=== PATIENT | female | born 1955 | race Caucasian/White ===

== ENCOUNTER 2018-11-04 16:34 | Inpatient (IN) ==
[2018-11-04] MEDS ORDERED: XANAX PO PRN (16:41)
[2018-11-04] MEDS ORDERED: TORADOL 15 MG VIAL IVP PRN (16:41)
--- NOTE | 2018-11-04 17:05 | DR.H&P ---
H&P - History & Physical for Day of: H&P Date: 11/04/18 - Chief Complaint Chief Complaint: RIGHT SIDE CHEST PAIN, CCC, SOB, FEVER - History of Present Illness History of Present Illness: 63 WF DIRECT ADMIT FROM DR C[place] OFFICE WITH CO CCC, WHEEZING, FEVER. PT STATES SHE HAD BEEN SICK FOR OVER A WEEK, USING BREATHING TREATMENTS AND TOOK ZITHROMAX. PT CO RIGHT SIDE CHEST PAIN AND ELEVATED BLOOD PRESSURE AND FEVER THIS AM. TEMP IN OFFICE 100. PT HAS PMH OF HTN, WHITLEY, COPD. PT ADMITTED FOR TREATMENT OF ACUTE ILLNESS, PNEUMONIA PROTCOL. - Past Medical History Past Medical History: COPD, GERD, Hypertension - Past Surgical History Surgical History: , Hysterectomy, Ortho Surgery - Family History Family Medical History: Diabetes Mellitus, Cancer, [place], Coronary Artery Disease, Sudden Cardiac , Hypertension - Social History Does patient currently use any type of tobacco product: Yes Have you used tobacco products in the last 12 months: Yes Type of Tobacco Use: Cigarettes Does any household member use tobacco: No Alcohol Use: None Drug Use: None Risks, benefits, and alternatives of opioids discussed: No - Medications Home Medications: MS Ceftriaxone [From Rocephin] Allergy (Severe, Verified 11/02/14 18:10) - Review of Systems Constitutional: Fever, Weakness, Malaise Eyes: No Symptoms Reported ENT: Nose Congestion, Throat Pain Respiratory: Cough, Shortness of Breath, SOB with Excertion, Pleuritic Pain, Wheezing Cardiovascular: Chest Pain (RIGHT ), Edema (RLE ) Gastrointestinal: No Symptoms Reported Genitourinary: No Symptoms Reported Musculoskeletal: Back Pain Skin: No Symptoms Reported Neurological: No Symptoms Reported - Physical Exam Vital Signs: Blood Pressure [Left Arm] 131/62 Blood Pressure [Right Arm] 143/73 Blood Pressure 143/73 Oriented: Normal Eyes: Normal Ear: Normal Nose: Normal Throat: Dry Respiratory: Wheezes Throughout, RLL Diminished, LLL Diminished Cardiovascular: Tachycardia, Edema (RLE +1 EDEMA) : Normal Auscultation: Bowel Sounds: Normal Palpation: Normal Tenderness: Normal Skin: Normal Musculoskeletal: Back:Lumbar Psychiatric: Anxiety Affect: Anxious Speech Pattern: Clear, Appropriate - Assessment/Plan (1) Bronchopneumonia Status: Acute Plan: ADMIT, PNEUMONIA PROTOCOL. BLOOD AND SPUTUM CULTURES. GENTLE IV HYDRATION, IV ATBX. IV SOLU MEDROL, ABG ON ADMISSION. BP CONTROL, VERIFY HOME MEDICATION. SUPPLEMENTAL O2 (2) SOB (shortness of breath) Status: Acute (3) Fever Status: Acute (4) Degenerative arthritis of lumbar spine Status: Acute (5) HTN (hypertension) Status: Chronic - Allergies Allergies/Adverse Reactions: Allergies Allergy/AdvReac Type Severity Reaction Status Date / Time MS Ceftriaxone Allergy Severe Verified 11/02/14 18:10 [From [place]]
[2018-11-04] MEDS: PULMICORT NEB TX 0.5 MG NEB SCH ×2 (17:26→20:11)
[2018-11-04] MEDS ORDERED: SALINE 3% 15 ML NEB TX NEB ONE (18:00)
[2018-11-04 18:27] LABS: BASOPHILS # (AUTO) 0.1 X10^3/uL (0.0-0.1); BASOPHILS % (AUTO) 0.6 % (0.2-1.0); EOSINOPHILS # (AUTO) 0.1 x10^3/uL (0.0-0.2); EOSINOPHILS % (AUTO) 0.4 % (0.9-2.9); HEMOGLOBIN 12.6 g/dL (12.0-16.0); LYMPHOCYTES # (AUTO) 1.7 X10^3/uL (1.3-2.9); MEAN CORPUSCULAR HEMOGLOBIN 30.3 pg (27.0-34.0); MEAN CORPUSCULAR VOLUME 89.1 fL (80.0-100.0); MEAN PLATELET VOLUME 9.4 fL (7.4-11.0); MONOCYTES # (AUTO) 0.9 x10^3/uL (0.3-0.8); MONOCYTES % (AUTO) 7.2 % (0.0-13.0); NEUTROPHILS # (AUTO) 10.2 x10^3/uL (2.2-4.8); NEUTROPHILS % (AUTO) 78.8 % (42.0-75.0); PLATELET COUNT 209 X10^3/uL (150.0-450.0); RED BLOOD COUNT 4.15 X10^6/uL (3.5-5.4); RED CELL DISTRIBUTION WIDTH 14.1 % (11.6-16.5); WHITE BLOOD COUNT 12.9 X10^3/uL (3.6-10.0)
[2018-11-04 18:37] LABS: ALANINE AMINOTRANSFERASE 20 Units/L (12-78); ALBUMIN 3.5 g/dL (3.4-5.0); ALKALINE PHOSPHATASE 72 Units/L (46-116); ASPARTATE AMINO TRANSFERASE 20 Units/L (15-37); BLOOD UREA NITROGEN 22 mg/dL (7-18); CALCIUM 9.3 mg/dL (8.5-10.1); CARBON DIOXIDE 27.8 mmol/L (21-32); CHLORIDE 99 mmol/L (98-107); CREATININE 1.63 mg/dL (0.55-1.02); SODIUM 138 mmol/L (136-145); TOTAL PROTEIN 7.7 g/dL (6.4-8.2); eGFR NON BLACK RACES 34 (>60)
[2018-11-04] MEDS ORDERED: NS 1/2 1000 ML IV 1,000 ML ONE (18:57)
[2018-11-04] MEDS: CHLORTHALIDONE PO SCH (19:13)
[2018-11-04] MEDS: COZAAR PO SCH (19:13)
[2018-11-04] MEDS: NS 1/2 1000 ML IV 1,000 ML IV SCH (19:14)
[2018-11-04] MEDS: PROTONIX INJ 40 MG VIAL IVP SCH (19:14)
[2018-11-04] MEDS: ROBITUSSIN DM PO SCH ×2 (19:14→21:55)
[2018-11-04] MEDS: ZEBETA TAB 5 MG PO SCH (19:15)
[2018-11-04 19:18] VITALS: BMI 28.2
[2018-11-04] MEDS ORDERED: PREVNAR 13 IM ONE (20:00)
[2018-11-04] MEDS: DUONEB 0.5 MG/3 MG NEB SCH (20:11)
[2018-11-04] MEDS: LEVAQUIN PREMIX IV 750 MG 750 MG/150 ML BAG IV SCH (20:19)
[2018-11-04] MEDS: BROVANA IN SCH (20:31)
[2018-11-04] MEDS: SOLU-Medrol 40 MG VIAL IVP SCH (21:00)
[2018-11-04] MEDS: TUSSIONEX PENNKINETIC SUSP PO PRN (21:54)
--- NOTE | 2018-11-04 22:06 | RAD ---
History: Pneumonia Exam: Chest x-ray Comparison: 07/07/2014 Technique: A portable AP chest was obtained. Findings: The heart is borderline enlarged but unchanged. The pulmonary vessels are engorged centrally and more prominent with some hazy perihilar and bibasilar interstitial prominence . There is subsegmental linear opacity along the left upper lobe with mild linear densities scattered along both lung bases. No effusion is seen. IMPRESSION: Mild cardiomegaly and mild pulmonary interstitial edema which is more apparent . Subsegmental infiltrate or atelectasis left upper lobe with mild discoid atelectasis or scarring along the lung bases which is more prominent. Reported By:
[2018-11-05] MEDS: DUONEB 0.5 MG/3 MG NEB SCH ×6 (00:57→20:34)
[2018-11-05] MEDS: SOLU-Medrol 40 MG VIAL IVP SCH ×2 (05:14→14:34)
[2018-11-05 06:06] LABS: BASOPHILS % (AUTO) 0.2 % (0.2-1.0); HEMATOCRIT 35.1 % (36.0-47.0); LYMPHOCYTES # (AUTO) 0.6 X10^3/uL (1.3-2.9); LYMPHOCYTES % (AUTO) 6.7 % (21.0-51.0); MEAN CORPUSCULAR HEMOGLOBIN 30.6 pg (27.0-34.0); MEAN CORPUSCULAR HGB CONC 34.1 g/dL (33.0-35.0); MEAN CORPUSCULAR VOLUME 89.9 fL (80.0-100.0); MEAN PLATELET VOLUME 9.3 fL (7.4-11.0); MONOCYTES # (AUTO) 0.2 x10^3/uL (0.3-0.8); NEUTROPHILS # (AUTO) 8.3 x10^3/uL (2.2-4.8); NEUTROPHILS % (AUTO) 91.1 % (42.0-75.0); PLATELET COUNT 185 X10^3/uL (150.0-450.0); RED BLOOD COUNT 3.91 X10^6/uL (3.5-5.4); RED CELL DISTRIBUTION WIDTH 14.1 % (11.6-16.5); WHITE BLOOD COUNT 9.1 X10^3/uL (3.6-10.0)
[2018-11-05 06:33] LABS: ALBUMIN 3.1 g/dL (3.4-5.0); CARBON DIOXIDE 26.6 mmol/L (21-32); COR CA(FOR HYPOALB) 9.7 mg/dL (8.5-10.1); CREATININE 1.59 mg/dL (0.55-1.02); PLATELET MORPHOLOGY COMMENT NORMAL (NORMAL); TOTAL PROTEIN 7.3 g/dL (6.4-8.2)
[2018-11-05] MEDS: PULMICORT NEB TX 0.5 MG NEB SCH ×2 (08:39→20:34)
[2018-11-05] MEDS: BROVANA IN SCH ×2 (08:56→20:56)
[2018-11-05] MEDS: ROBITUSSIN DM PO SCH ×5 (09:14→21:00)
[2018-11-05] MEDS: COZAAR PO SCH (09:14)
[2018-11-05] MEDS: PROTONIX INJ 40 MG VIAL IVP SCH (09:14)
[2018-11-05] MEDS: ZEBETA TAB 5 MG PO SCH (09:16)
[2018-11-05] MEDS: CHLORTHALIDONE PO SCH (09:16)
[2018-11-05] MEDS: NS 1/2 1000 ML IV 1,000 ML IV SCH ×3 (09:23→21:00)
[2018-11-05] MEDS: EFFEXOR TAB 75 MG (BID DOSING) PO SCH (11:24)
[2018-11-05] MEDS: MICRO K EXTEN CAP 10 MEQ PO SCH (11:24)
[2018-11-05] MEDS: CARAFATE PO SCH ×5 (11:24→20:59)
[2018-11-05] MEDS: LASIX IVP ONE ×2 (11:24→13:38)
[2018-11-05] MEDS ORDERED: NS 1/2 1000 ML IV 1,000 ML ONE (15:42)
[2018-11-05] MEDS: NEURONTIN CAP 300 MG PO SCH (20:59)
[2018-11-05] MEDS: SINGULAIR TAB 10 MG PO SCH (21:00)
[2018-11-06] MEDS: DUONEB 0.5 MG/3 MG NEB SCH ×6 (01:05→21:00)
[2018-11-06] MEDS ORDERED: NS 1/2 1000 ML IV 1,000 ML ONE (04:32)
[2018-11-06 06:10] LABS: BASOPHILS # (AUTO) 0.1 X10^3/uL (0.0-0.1); BASOPHILS % (AUTO) 0.4 % (0.2-1.0); HEMATOCRIT 37.4 % (36.0-47.0); HEMOGLOBIN 12.3 g/dL (12.0-16.0); LYMPHOCYTES # (AUTO) 1.2 X10^3/uL (1.3-2.9); LYMPHOCYTES % (AUTO) 7.4 % (21.0-51.0); MEAN CORPUSCULAR HEMOGLOBIN 29.8 pg (27.0-34.0); MEAN CORPUSCULAR VOLUME 90.5 fL (80.0-100.0); MEAN PLATELET VOLUME 9.3 fL (7.4-11.0); MONOCYTES # (AUTO) 1.3 x10^3/uL (0.3-0.8); MONOCYTES % (AUTO) 8.3 % (0.0-13.0); NEUTROPHILS % (AUTO) 83.9 % (42.0-75.0); PLATELET COUNT 200 X10^3/uL (150.0-450.0); RED BLOOD COUNT 4.13 X10^6/uL (3.5-5.4); RED CELL DISTRIBUTION WIDTH 13.9 % (11.6-16.5); WHITE BLOOD COUNT 15.5 X10^3/uL (3.6-10.0)
--- NOTE | 2018-11-06 06:20 | RAD ---
Chest, two views Indication: Pneumonia Comparison: 11/04/2018 Findings: There is stable enlargement of the cardiac silhouette. Interstitial edema appears improved since prior exam. There is stable atelectasis versus scarring within the left upper lobe. Patchy right upper lobe opacities appear slightly more conspicuous on today's exam. No pleural effusion is identified. No pneumothorax. Impression: Stable cardiomegaly with improving interstitial edema. Patchy right upper lobe opacities, suspicious for pneumonia. Stable atelectasis versus scarring of the left upper lobe. Reported By:
[2018-11-06 06:37] LABS: CALCIUM 9.2 mg/dL (8.5-10.1); CARBON DIOXIDE 29.5 mmol/L (21-32); CREATININE 1.57 mg/dL (0.55-1.02); TOTAL PROTEIN 7.3 g/dL (6.4-8.2)
[2018-11-06] MEDS: PULMICORT NEB TX 0.5 MG NEB SCH ×2 (08:32→21:00)
[2018-11-06] MEDS: BROVANA IN SCH ×2 (08:46→21:15)
[2018-11-06] MEDS ORDERED: CRESTOR TAB 10 MG PO SCH ×2 (09:00→21:00)
[2018-11-06] MEDS: CARAFATE PO SCH ×4 (09:31→20:54)
[2018-11-06] MEDS: ZEBETA TAB 5 MG PO SCH (09:32)
[2018-11-06] MEDS: MICRO K EXTEN CAP 10 MEQ PO SCH (09:33)
[2018-11-06] MEDS: EFFEXOR TAB 75 MG (BID DOSING) PO SCH (09:33)
[2018-11-06] MEDS: COZAAR PO SCH (09:34)
[2018-11-06] MEDS: ROBITUSSIN DM PO SCH ×4 (09:35→20:53)
[2018-11-06] MEDS: PROTONIX TAB 40 MG PO SCH (09:35)
[2018-11-06] MEDS: CHLORTHALIDONE PO SCH (09:35)
[2018-11-06] MEDS: NS 1/2 1000 ML IV 1,000 ML IV SCH ×2 (09:40→11:32)
--- NOTE | 2018-11-06 18:03 | PCM.PROG ---
Progress Note - Progress Note for Day of Date of Exam: 11/06/18 - Subjective Subjective: The patient is a 63-year-old white female who was a direct admit from Dr. Hyde office yesterday with reports of cold, cough, and congestion, wheezing, along with fever. The patient was admitted for the pneumonia protocol. On admission, her chest x-ray did show a sub-segmental infiltrate along with mild cardiomegaly and pulmonary interstitial edema which was more apparent on the patients admitting chest x-ray. We did obtain a sputum culture and blood cultures on admission which are pending. Pt continues with complain of cough with diffuse expiratory wheezing, decreased lower extremity edema. Creat continues to be elevated above her baseline. We encouraged oral hydration and pulmonary toileting. We will obtain Ct chest without due to renal function to evaluate pneumonia and repeat lasix and solu medrol in the am x 1 dose. - Past Medical Family Social History Past Med/Fam/Surg Hx: No changes since H&P Allergies: Allergies ceftriaxone [From Rocephin] Allergy (Verified 11/04/18 19:28) - Review of Systems ROS: No change since H&P - Vital Signs and I&O's Vital Signs: Temperature 98.0 F Pulse Rate [Left Brachial] 80 Pulse Rate 83 Respiratory Rate 18 Blood Pressure [Left Arm] 146/70 Blood Pressure [Right Arm] 143/73 Blood Pressure 143/73 O2 Sat by Pulse Oximetry 98 Intake and Output: Intake & Output 11/04/18 11/05/18 11/06/18 11/07/18 11:59 11:59 11:59 11:59 Intake Total 1230 / 1230 2555 / 2555 1942 Balance 1230 / 1230 2555 / 2555 1942 - Physical Exam Oriented: Normal Eyes: Normal Ear: Normal Nose: Normal Throat: Dry Respiratory: Wheezes, Rhonchi Cardiovascular: Tachycardia, Edema (RLE +1 EDEMA) : Normal Auscultation: Bowel Sounds: Normal Tenderness: Normal Skin: Normal Musculoskeletal: Back:Lumbar Psychiatric: Anxiety Affect: Anxious Speech Pattern: Clear, Appropriate - Laboratory and Diagnostics Result Diagrams: 11/06/18 05:17 11/06/18 05:17 Labs: 11/04/18 17:49 Blood Blood Culture - Preliminary 11/04/18 17:43 Blood Blood Culture - Preliminary 11/04/18 18:10 Sputum - Expectorated Sputum Sputum Culture - Preliminary 11/04/18 18:10 Sputum - Expectorated Sputum - Final Laboratory WBC 15.5 X10^3/uL (3.6-10.0) H 11/06/18 05:17 RBC 4.13 X10^6/uL (3.5-5.4) 11/06/18 05:17 Hgb 12.3 g/dL (12.0-16.0) 11/06/18 05:17 Hct 37.4 % (36.0-47.0) 11/06/18 05:17 MCV 90.5 fL (80.0-100.0) 11/06/18 05:17 MCH 29.8 pg (27.0-34.0) 11/06/18 05:17 MCHC 33.0 g/dL (33.0-35.0) 11/06/18 05:17 RDW 13.9 % (11.6-16.5) 11/06/18 05:17 Plt Count 200 X10^3/uL (150.0-450.0) 11/06/18 05:17 Plt Count Comment Adequate (ADEQUATE) 11/05/18 05:31 MPV 9.3 fL (7.4-11.0) 11/06/18 05:17 Neut % (Auto) 83.9 % (42.0-75.0) H 11/06/18 05:17 Lymph % (Auto) 7.4 % (21.0-51.0) L 11/06/18 05:17 [place] % (Auto) 8.3 % (0.0-13.0) 11/06/18 05:17 Eos % (Auto) 0.0 % (0.9-2.9) L 11/06/18 05:17 Baso % (Auto) 0.4 % (0.2-1.0) 11/06/18 05:17 Neut # (Auto) 13.0 x10^3/uL (2.2-4.8) H 11/06/18 05:17 Lymph # (Auto) 1.2 X10^3/uL (1.3-2.9) L 11/06/18 05:17 [place] # (Auto) 1.3 x10^3/uL (0.3-0.8) H 11/06/18 05:17 Eos # (Auto) 0.0 x10^3/uL (0.0-0.2) 11/06/18 05:17 Baso # (Auto) 0.1 X10^3/uL (0.0-0.1) 11/06/18 05:17 Absolute Nucleated RBC 0.0 /100WBC 11/06/18 05:17 Total Counted 100 11/05/18 05:31 Neutrophils % (Manual) 94 % (39-76) H 11/05/18 05:31 Lymphocytes % (Manual) 6 % (13-43) L 11/05/18 05:31 Plt Morphology Comment Normal (NORMAL) 11/05/18 05:31 RBC Morphology Normal (NORMAL) 11/05/18 05:31 Sodium 142 mmol/L (136-145) 11/06/18 05:17 Corrected Sodium 142 mmol/L (136-145) 11/06/18 05:17 Potassium 3.7 mmol/L (3.5-5.1) 11/06/18 05:17 Chloride 103 mmol/L (98-107) 11/06/18 05:17 Carbon Dioxide 29.5 mmol/L (21-32) 11/06/18 05:17 BUN 31 mg/dL (7-18) H 11/06/18 05:17 Creatinine 1.57 mg/dL (0.55-1.02) H 11/06/18 05:17 Est GFR (MDRD) Af Amer 43 (>60) L 11/06/18 05:17 Est GFR (MDRD) Non-Af 35 (>60) L 11/06/18 05:17 Glucose 118 mg/dL (65-99) H 11/06/18 05:17 Calcium 9.2 mg/dL (8.5-10.1) 11/06/18 05:17 Corrected Calcium 10.0 mg/dL (8.5-10.1) 11/06/18 05:17 Total Bilirubin 0.20 mg/dL (0.2-1.0) 11/06/18 05:17 AST 15 Units/L (15-37) 11/06/18 05:17 ALT 17 Units/L (12-78) 11/06/18 05:17 Alkaline Phosphatase 65 Units/L (46-116) 11/06/18 05:17 Total Protein 7.3 g/dL (6.4-8.2) 11/06/18 05:17 Albumin 3.0 g/dL (3.4-5.0) L 11/06/18 05:17 Globulin 4.3 g/dL (2.5-4.5) 11/06/18 05:17 Albumin/Globulin Ratio 0.7 Ratio (1.1-2.1) L 11/06/18 05:17 - Plan (1) Bronchopneumonia Status: Acute Plan: PNEUMONIA PROTOCOL. BLOOD AND SPUTUM CULTURES. GENTLE IV HYDRATION, IV ATBX. IV SOLU MEDROL, ABG ON ADMISSION. BP CONTROL. SUPPLEMENTAL O2 (2) SOB (shortness of breath) Status: Acute (3) Fever Status: Acute (4) Degenerative arthritis of lumbar spine Status: Acute (5) HTN (hypertension) Status: Chronic
[2018-11-06] MEDS: NICOTINE PATCH TD SCH (20:54)
[2018-11-06] MEDS: NEURONTIN CAP 300 MG PO SCH (20:54)
[2018-11-06] MEDS: SINGULAIR TAB 10 MG PO SCH (20:55)
[2018-11-06] MEDS: LEVAQUIN PREMIX IV 750 MG 750 MG/150 ML BAG IV SCH (20:57)
[2018-11-06] MEDS: TUSSIONEX PENNKINETIC SUSP PO PRN (21:45)
[2018-11-07] MEDS: DUONEB 0.5 MG/3 MG NEB SCH ×4 (01:23→12:13)
[2018-11-07 05:24] LABS: BASOPHILS # (AUTO) 0.1 X10^3/uL (0.0-0.1); BASOPHILS % (AUTO) 0.7 % (0.2-1.0); EOSINOPHILS # (AUTO) 0.1 x10^3/uL (0.0-0.2); EOSINOPHILS % (AUTO) 0.6 % (0.9-2.9); HEMATOCRIT 35.3 % (36.0-47.0); HEMOGLOBIN 11.6 g/dL (12.0-16.0); LYMPHOCYTES # (AUTO) 2.2 X10^3/uL (1.3-2.9); LYMPHOCYTES % (AUTO) 19.6 % (21.0-51.0); MEAN CORPUSCULAR HEMOGLOBIN 29.9 pg (27.0-34.0); MEAN CORPUSCULAR VOLUME 90.8 fL (80.0-100.0); MEAN PLATELET VOLUME 9.6 fL (7.4-11.0); MONOCYTES # (AUTO) 0.9 x10^3/uL (0.3-0.8); NEUTROPHILS # (AUTO) 7.9 x10^3/uL (2.2-4.8); NEUTROPHILS % (AUTO) 71.1 % (42.0-75.0); PLATELET COUNT 209 X10^3/uL (150.0-450.0); RED BLOOD COUNT 3.89 X10^6/uL (3.5-5.4); RED CELL DISTRIBUTION WIDTH 14.1 % (11.6-16.5); WHITE BLOOD COUNT 11.1 X10^3/uL (3.6-10.0)
[2018-11-07 05:35] LABS: ALANINE AMINOTRANSFERASE 19 Units/L (12-78); ALBUMIN 2.9 g/dL (3.4-5.0); ALKALINE PHOSPHATASE 60 Units/L (46-116); ASPARTATE AMINO TRANSFERASE 35 Units/L (15-37); BLOOD UREA NITROGEN 26 mg/dL (7-18); CALCIUM 8.6 mg/dL (8.5-10.1); CARBON DIOXIDE 27.8 mmol/L (21-32); CHLORIDE 101 mmol/L (98-107); COR CA(FOR HYPOALB) 9.5 mg/dL (8.5-10.1); CREATININE 1.42 mg/dL (0.55-1.02); SODIUM 137 mmol/L (136-145); TOTAL PROTEIN 6.7 g/dL (6.4-8.2); eGFR NON BLACK RACES 39 (>60)
[2018-11-07] MEDS: LASIX IVP SCH ×2 (05:57→10:48)
[2018-11-07] MEDS: NS 1/2 1000 ML IV 1,000 ML IV SCH ×2 (05:58→06:25)
[2018-11-07] MEDS ORDERED: SOLU-Medrol 40 MG VIAL IVP ONE ×2 (06:00→09:22)
[2018-11-07] MEDS ORDERED: NS 1/2 1000 ML IV 1,000 ML ONE (06:13)
--- NOTE | 2018-11-07 07:34 | CT ---
HISTORY: Lung infiltrate Study: CT chest without contrast Comparison: Plain film 11/06/2018, CT chest 09/24/2013, report Technique: Axial noncontrast images with coronal and sagittal reformats. Dose reduction procedures were used with mA/kv adjusted for body size. This examination is limited due to the lack of intravenous contrast. The examination was performed in this manner at the sole discretion of the ordering caregiver. Findings: Examination of the mediastinum demonstrated no evidence for mediastinal masses, enlarged mediastinal or enlarged hilar adenopathy, or pleural effusions. The heart is mildly enlarged. Coronary artery calcifications are present. No chest wall or axillary abnormality is identified. Those portions of the upper abdominal organs visualized were within normal limits to the limitations of an unenhanced examination. Incidental note is made of a benign right adrenal adenoma. Examination of the lung ram demonstrated subtle bilateral ground-glass infiltrates involving the right upper and right lower lobes and left upper lobe. This could be consistent with early pneumonia or perhaps bronchiolitis. There is diffuse peribronchial thickening consistent with bronchitis which could be acute, chronic, or both. Additionally best visualized on series 4 image 36, 37, 38 and 42 are sub 0.5 cm nodules in the right upper and right middle lobes. Follow-up examination in 6 months is recommended. No masses, areas of consolidation, or bronchiectasis identified. IMPRESSION: Subtle ground-glass infiltrates in the upper lobes bilaterally most prominently on the right and in the right lower lobe. These could represent early pneumonia or bronchiolitis. Diffuse peribronchial thickening consistent with bronchitis which could be acute, chronic, or both Multiple sub 0.5 cm peripheral right upper and right middle lobe pulmonary nodule requiring CT follow-up in 6 months Reported By:
[2018-11-07] MEDS: BROVANA IN SCH (08:56)
[2018-11-07] MEDS: PULMICORT NEB TX 0.5 MG NEB SCH (09:00)
[2018-11-07] MEDS: EFFEXOR TAB 75 MG (BID DOSING) PO SCH (09:27)
[2018-11-07] MEDS: ROBITUSSIN DM PO SCH ×2 (09:27→13:00)
[2018-11-07] MEDS: TUSSIONEX PENNKINETIC SUSP PO PRN (09:27)
[2018-11-07] MEDS: NICOTINE PATCH TD SCH (09:27)
[2018-11-07] MEDS: MICRO K EXTEN CAP 10 MEQ PO SCH (09:28)
[2018-11-07] MEDS: COZAAR PO SCH (09:28)
[2018-11-07] MEDS: MUCOMYST 20% 200 MG/ML NEB SCH ×2 (09:29→12:13)
[2018-11-07] MEDS: CHLORTHALIDONE PO SCH (09:29)
[2018-11-07] MEDS: PROTONIX TAB 40 MG PO SCH (09:29)
[2018-11-07] MEDS: CARAFATE PO SCH ×2 (09:29→13:00)
[2018-11-07] MEDS: ZEBETA TAB 5 MG PO SCH (09:30)
[2018-11-07] MEDS ORDERED: SOLU-Medrol 40 MG VIAL ONE (11:27)
[2018-11-07] MEDS ORDERED: PREVNAR 13 IM ONE (11:35)
[2018-11-07 13:39] VITALS: BP 126/63
== END 2018-11-07 14:50 | disposition home or self-care (01) | DRG 193 ==
LOC: MED/SURG 17:11
PROVIDERS: ADMIT Internal Medicine; ATTEND Internal Medicine
DX: J18.0 Bronchopneumonia, unspecified organism; K21.9 Gastro-esophageal reflux disease without esophagitis; J81.0 Acute pulmonary edema; J44.9 Chronic obstructive pulmonary disease, unspecified; Z23 Encounter for immunization; F41.8 Other specified anxiety disorders; M47.896 Other spondylosis, lumbar region; I10 Essential (primary) hypertension
CPT/HCPCS: 36415; 71010; 71020; 71045; 71046; 71250; 80053; 85025; 87040; 87070; 87205; 94640; 94669; 94760; A4216; A4222; C9113; 90670; J1940; J1956; J2920; J7608; J7620; J7626

== ENCOUNTER 2021-03-07 09:30 | Observation (INO) ==
[2021-03-07] MEDS ORDERED: NS 1000 ML 1,000 ML IV SCH (11:00)
[2021-03-07 11:14] LABS: ERYTHROCYTE SEDIMENTATION RATE 57 MM/HOUR (0-20)
[2021-03-07 11:16] LABS: BASOPHILS % (AUTO) 0.3 % (0.2-1.0); EOSINOPHILS % (AUTO) 0.4 % (0.9-2.9); HEMATOCRIT 34.8 % (36.0-47.0); HEMOGLOBIN 11.7 g/dL (12.0-16.0); LYMPHOCYTES % (AUTO) 8.5 % (21.0-51.0); MEAN CORPUSCULAR HGB CONC 33.5 g/dL (33.0-35.0); MEAN CORPUSCULAR VOLUME 89.3 fL (80.0-100.0); MEAN PLATELET VOLUME 9.6 fL (7.4-11.0); MONOCYTES # (AUTO) 0.7 x10^3/uL (0.3-0.8); MONOCYTES % (AUTO) 5.7 % (0.0-13.0); NEUTROPHILS # (AUTO) 10.2 x10^3/uL (2.2-4.8); NEUTROPHILS % (AUTO) 85.1 % (42.0-75.0); PLATELET COUNT 218 X10^3/uL (150.0-450.0); RED CELL DISTRIBUTION WIDTH 14.7 % (11.6-16.5)
[2021-03-07 11:31] LABS: ALBUMIN 2.8 g/dL (3.4-5.0); CALCIUM 6.8 mg/dL (8.5-10.1); CARBON DIOXIDE 25.4 mmol/L (21-32); COR CA(FOR HYPOALB) 7.8 mg/dL (8.5-10.1); CREATININE 1.47 mg/dL (0.55-1.02); TOTAL PROTEIN 7.8 g/dL (6.4-8.2); URIC ACID 5.8 mg/dL (2.6-6.0)
[2021-03-07] MEDS ORDERED: MAGNESIUM SULFATE 1 GRAM/100 mL PREMIX 1 G/100 ML BAG IV PRN (13:30)
[2021-03-07] MEDS ORDERED: POTASSIUM CHL 40 MEQ/NS 0.45% 500 ML IV PRN (13:30)
[2021-03-07] MEDS ORDERED: MICRO K EXTEN CAP 10 MEQ PO PRN (13:30)
[2021-03-07] MEDS ORDERED: POTASSIUM CHL 60 MEQ/NS 0.45% 500 ML IV PRN (13:30)
[2021-03-07] MEDS ORDERED: POTASSIUM CHLORIDE LIQ 20 MEQ UDC PO PRN (13:30)
[2021-03-07] MEDS ORDERED: KLOR-CON PO PRN (13:30)
[2021-03-07] MEDS ORDERED: K-RIDER 10 MEQ/NS 100 ML 10 MEQ/100 ML BAG IV PRN (13:30)
[2021-03-07] MEDS: NS 1000 ML 1,000 ML IV SCH ×2 (13:31→23:47)
--- NOTE | 2021-03-07 13:40 | RAD ---
HISTORYCOPD, DEHYDRATIONSTUDYCHEST, 1 [id number] cardiomediastinal silhouette is stable. The lungs are clear without evidence of airspace disease or effusion. No pneumothorax. The bony thorax appears intact.IMPRESSIONNo acute cardiopulmonary disease.Electronically signed by: ABELINO MILIAN (Mar 07, 2021 13:37:59)
[2021-03-07] MEDS ORDERED: NS 500 ML IV 500 ML with MAGNESIUM SULFATE 50% INJ VIAL 5 G IV ONE ×2 (15:00)
[2021-03-07] MEDS: ZYLOPRIM PO SCH (15:38)
[2021-03-07] MEDS: FLAGYL IV PREMIX 500 MG BAG 500 MG/100 ML BAG IV SCH ×2 (15:38→21:50)
[2021-03-07] MEDS: CITRACAL + VITAMIN D PO SCH ×2 (16:42→21:50)
[2021-03-07 16:51] VITALS: BMI 40.0
[2021-03-07 17:12] LABS: BILIRUBIN,URINE NEGATIVE (NEGATIVE); BLOOD/HEMOGLOBIN,URINE 1+ (NEGATIVE); GLUCOSE, URINE NEGATIVE (NEGATIVE); KETONES,URINE NEGATIVE (NEGATIVE); LEUKOCYTE ESTERASE ,URINE NEGATIVE (NEGATIVE); NITRITES,URINE NEGATIVE (NEGATIVE); PROTEIN,URINE 1+ (NEGATIVE); UROBILINOGEN,URINE NORMAL (NORMAL)
[2021-03-07 17:14] LABS: APPEARANCE,URINE CLEAR (CLEAR); COLOR,URINE YELLOW (YELLOW)
[2021-03-07 17:23] LABS: AMORPHOUS SEDIMENT,UR 2+ /HPF (NEGATIVE); BACTERIA,URINE TRACE /HPF (NEGATIVE); SQUAMOUS EPITHELIAL CELL,UR MANY /HPF (NEGATIVE)
[2021-03-07] MEDS ORDERED: ZOFRAN INJ 4 MG VIAL IVP PRN (17:23)
[2021-03-07] MEDS ORDERED: NORCO 5/325 MG TAB PO PRN (17:23)
--- NOTE | 2021-03-07 17:32 | DR.H&P ---
H&P - History & Physical for Day of: H&P Date: 03/07/21 - Chief Complaint Chief Complaint: N/V/D, DEHYDRATION, WEAKNESS - History of Present Illness History of Present Illness: PT IS 65 WF DIRECT ADMIT FROM DR MIRANDA OFFICE WITH DEHDYRATION FROM ACUTE N/V/D FOR A WEEK. PT HAD LITER NS ON SUNDAY WITH OUTPT LABS REVEALING ACUTE RENAL FAILURE WITH GFR 25. PT REPORTS SHE HAD BEEN ON ANTIBIOTIC REGIMEN FOR INACTIVE TB AT [facility]. PT ALSO REPORTS SEVERE GOUT FLARE TO RIGHT FOOT ONSET WITH DEHYDRATION. PT HAS PMH OF COPD, HTN, OA, GOUT, WHITLEY. PT ADMITTED FOR TREATMENT OF ACUTE ILLNESS - Past Medical History Past Medical History: Anxiety, Arthritis, COPD, GERD, Gout, Hypertension - Past Surgical History Surgical History: Appendectomy, , Hysterectomy, Joint Replacement, Tonsillectomy - Family History Family Medical History: Diabetes Mellitus, Coronary Artery Disease, Sudden Cardiac - Social History Does patient currently use any type of tobacco product: No Have you used tobacco products in the last 12 months: No Type of Tobacco Use: Cigarettes How many years tobacco product used: 36 Does any household member use tobacco: No Alcohol Use: None Drug Use: None - Medications Home Medications: ceftriaxone [From Rocephin] Allergy (Verified 11/04/18 19:28) CONTINUE taking the following medications benazepril-hydrochlorothiazide 1 tab PO DAILY 03/07/21 [History] gabapentin 300 mg PO 0800,1200 03/07/21 [History] - Review of Systems Constitutional: Weakness, Malaise Eyes: No Symptoms Reported ENT: No Symptoms Reported Cardiovascular: Edema Gastrointestinal: Nausea, Vomiting, Diarrhea Musculoskeletal: Foot Pain Skin: Wound (RIGHT 3RD) Neurological: Weakness - Physical Exam Vital Signs: Temperature 99.1 F Pulse Rate [Right Brachial] 78 Respiratory Rate 20 Blood Pressure [Right Arm] 143/62 Blood Pressure [Left Arm] 126/63 O2 Sat by Pulse Oximetry 98 Oriented: Normal Eyes: Normal Ear: Normal Nose: Normal Throat: Dry Respiratory: RLL Diminished, LLL Diminished Cardiovascular: Normal : Normal Auscultation: Bowel Sounds: Increased Palpation: Normal Tenderness: Normal Skin: Decreased [place]urg[place], Wound Musculoskeletal: Right, Foot, Swelling, Tender Psychiatric: Anxiety Affect: Anxious Speech Pattern: Clear, Appropriate - Assessment/Plan (1) Hypokalemia Status: Acute Plan: ADMIT, GENTLE IV HYDRATION. I &OS, PPI THERAPY, VERIFY HOME MEDICATION. CXR AND EKG ON ADMISSION. COVID 19 SWAB ON ADMISSION, TELEMETRY. PAIN AND NAUSEA CONTROL, ELECTROLYTE REPLACEMENT (2) Acute colitis Status: Acute (3) COPD (chronic obstructive pulmonary disease) Status: Acute (4) Gout flare Status: Acute (5) Hypomagnesemia Status: Acute (6) HTN (hypertension) Status: Chronic - Allergies Allergies/Adverse Reactions: Allergies Allergy/AdvReac Type Severity Reaction Status Date / Time ceftriaxone [From Rocephin] Allergy Verified 11/04/18 19:28
[2021-03-07] MEDS ORDERED: LOTENSIN TAB 10 MG ONE (19:40)
[2021-03-07] MEDS: LOTENSIN TAB 10 MG PO SCH (20:35)
[2021-03-08] MEDS: FLAGYL IV PREMIX 500 MG BAG 500 MG/100 ML BAG IV SCH ×4 (03:36→20:13)
[2021-03-08 06:05] LABS: BASOPHILS # (AUTO) 0.1 X10^3/uL (0.0-0.1); BASOPHILS % (AUTO) 0.5 % (0.2-1.0); EOSINOPHILS # (AUTO) 0.1 x10^3/uL (0.0-0.2); EOSINOPHILS % (AUTO) 1.2 % (0.9-2.9); HEMOGLOBIN 11.1 g/dL (12.0-16.0); LYMPHOCYTES # (AUTO) 1.9 X10^3/uL (1.3-2.9); LYMPHOCYTES % (AUTO) 16.6 % (21.0-51.0); MEAN CORPUSCULAR HEMOGLOBIN 30.5 pg (27.0-34.0); MEAN CORPUSCULAR HGB CONC 33.6 g/dL (33.0-35.0); MEAN CORPUSCULAR VOLUME 90.8 fL (80.0-100.0); MEAN PLATELET VOLUME 9.8 fL (7.4-11.0); MONOCYTES # (AUTO) 0.7 x10^3/uL (0.3-0.8); NEUTROPHILS # (AUTO) 8.5 x10^3/uL (2.2-4.8); NEUTROPHILS % (AUTO) 75.7 % (42.0-75.0); PLATELET COUNT 231 X10^3/uL (150.0-450.0); RED BLOOD COUNT 3.64 X10^6/uL (3.5-5.4); RED CELL DISTRIBUTION WIDTH 14.2 % (11.6-16.5); WHITE BLOOD COUNT 11.2 X10^3/uL (3.6-10.0)
[2021-03-08 06:17] LABS: ALBUMIN 2.6 g/dL (3.4-5.0); CALCIUM 7.5 mg/dL (8.5-10.1); CARBON DIOXIDE 20.8 mmol/L (21-32); COR CA(FOR HYPOALB) 8.6 mg/dL (8.5-10.1); CREATININE 1.27 mg/dL (0.55-1.02); MAGNESIUM 2.7 mg/dL (1.7-2.9); TOTAL PROTEIN 7.3 g/dL (6.4-8.2)
[2021-03-08] MEDS: CITRACAL + VITAMIN D PO SCH ×2 (08:43→20:14)
[2021-03-08] MEDS: ZYLOPRIM PO SCH (08:44)
[2021-03-08] MEDS ORDERED: NORCO 5/325 MG TAB PO PRN (13:02)
[2021-03-08] MEDS: NS 1000 ML 1,000 ML IV SCH (13:55)
--- NOTE | 2021-03-08 14:29 | RAD ---
CHEST, 1 VIEWHISTORY:SOBStudy: Single view of the chest.Comparison:NoneFindings:Cardiomegaly and pulmonary vascular congestion. No focal consolidations, pleural effusions or pneumothorax. Osseous structures demonstrate no acute abnormality.IMPRESSION:1.Cardiomegaly and pulmonary vascular congestion.Electronically signed by: ADDISON HA (Mar 08, 2021 14:26:57)
[2021-03-08] MEDS: K-DUR TAB 20 MEQ PO PRN ×2 (16:05→20:14)
[2021-03-08] MEDS ORDERED: HYDROCHLOROTHIAZIDE 12.5 MG CAP ONE (20:00)
[2021-03-08] MEDS ORDERED: SINGULAIR TAB 10 MG ONE (20:01)
[2021-03-08] MEDS ORDERED: PLAQUENIL ONE (20:01)
[2021-03-08] MEDS ORDERED: NEURONTIN CAP 300 MG ONE (20:01)
[2021-03-08] MEDS ORDERED: CRESTOR TAB 10 MG PO ONE (20:01)
[2021-03-08] MEDS: LOTENSIN TAB 10 MG PO SCH (20:13)
[2021-03-08] MEDS: PLAQUENIL PO SCH (20:13)
--- NOTE | 2021-03-08 20:24 | PCM.PROG ---
Progress Note - Subjective Subjective: PATIENT IS A 65 YEAR OLD WHITE FEMALE WHO WAS ADMITTED DUE TO NAUSEA, VOMITING, DEHYDRATION, FABIOLA, AND WEAKNESS. PATIENT REPORTS SYMPTOMS IMPROVED. KIDNEY FUNCTION HAS IMPROVED WELL HYPOKALEMIA. POSSIBLE DISCHARGE IN AM PENDING LABS. - Past Medical Family Social History Past Med/Fam/Surg Hx: No changes since H&P Allergies: Allergies ceftriaxone [From Rocephin] Allergy (Verified 11/04/18 19:28) - Review of Systems ROS: No change since H&P - Vital Signs and I&O's Vital Signs: Temperature 99.1 F Pulse Rate [Right Brachial] 101 Respiratory Rate 20 Blood Pressure [Right Arm] 160/72 Blood Pressure [Left Arm] 120/87 O2 Sat by Pulse Oximetry 99 Intake and Output: Intake & Output 03/05/21 03/06/21 03/07/21 03/08/21 23:59 23:59 23:59 23:59 Intake Total 1134 / 1134 2610 / 2610 Balance 1134 / 1134 2610 / 2610 - Physical Exam Oriented: Normal Eyes: Normal Ear: Normal Nose: Normal Throat: Normal Respiratory: Normal Cardiovascular: Normal : Normal Auscultation: Bowel Sounds: Normal Palpation: Normal Tenderness: Normal Skin: Decreased Turgur, Wound Musculoskeletal: Right, Foot, Swelling, Tender Psychiatric: Normal Mood Description: Calm Affect: Normal Speech Pattern: Clear, Appropriate - Laboratory and Diagnostics Result Diagrams: 03/08/21 05:00 03/08/21 18:17 Labs: 03/08/21 08:52 Stool - Final 03/07/21 16:45 Urine,Clean Catch Urine Culture - Preliminary Laboratory WBC 11.2 X10^3/uL (3.6-10.0) H 03/08/21 05:00 RBC 3.64 X10^6/uL (3.5-5.4) 03/08/21 05:00 Hgb 11.1 g/dL (12.0-16.0) L 03/08/21 05:00 Hct 33.0 % (36.0-47.0) L 03/08/21 05:00 MCV 90.8 fL (80.0-100.0) 03/08/21 05:00 MCH 30.5 pg (27.0-34.0) 03/08/21 05:00 MCHC 33.6 g/dL (33.0-35.0) 03/08/21 05:00 RDW 14.2 % (11.6-16.5) 03/08/21 05:00 Plt Count 231 X10^3/uL (150.0-450.0) 03/08/21 05:00 MPV 9.8 fL (7.4-11.0) 03/08/21 05:00 Neut % (Auto) 75.7 % (42.0-75.0) H 03/08/21 05:00 Lymph % (Auto) 16.6 % (21.0-51.0) L 03/08/21 05:00 [place] % (Auto) 6.0 % (0.0-13.0) 03/08/21 05:00 Eos % (Auto) 1.2 % (0.9-2.9) 03/08/21 05:00 Baso % (Auto) 0.5 % (0.2-1.0) 03/08/21 05:00 Neut # (Auto) 8.5 x10^3/uL (2.2-4.8) H 03/08/21 05:00 Lymph # (Auto) 1.9 X10^3/uL (1.3-2.9) 03/08/21 05:00 [place] # (Auto) 0.7 x10^3/uL (0.3-0.8) 03/08/21 05:00 Eos # (Auto) 0.1 x10^3/uL (0.0-0.2) 03/08/21 05:00 Baso # (Auto) 0.1 X10^3/uL (0.0-0.1) 03/08/21 05:00 Absolute Nucleated RBC 0.0 /100WBC 03/08/21 05:00 ESR 57 MM/HOUR (0-20) H 03/07/21 10:56 Sodium 140 mmol/L (136-145) 03/08/21 05:00 Corrected Sodium 140 mmol/L (136-145) 03/08/21 05:00 Potassium 3.6 mmol/L (3.5-5.1) 03/08/21 18:17 Chloride 104 mmol/L (98-107) 03/08/21 05:00 Carbon Dioxide 20.8 mmol/L (21-32) L 03/08/21 05:00 BUN 18 mg/dL (7-18) 03/08/21 05:00 Creatinine 1.27 mg/dL (0.55-1.02) H 03/08/21 05:00 Est GFR (MDRD) Af Amer 54 (>60) L 03/08/21 05:00 Est GFR (MDRD) Non-Af 45 (>60) L 03/08/21 05:00 Glucose 118 mg/dL (65-99) H 03/08/21 05:00 Uric Acid 5.8 mg/dL (2.6-6.0) 03/07/21 10:56 Calcium 7.5 mg/dL (8.5-10.1) L 03/08/21 05:00 Corrected Calcium 8.6 mg/dL (8.5-10.1) 03/08/21 05:00 Phosphorus 2.8 mg/dL (2.6-4.7) 03/07/21 10:56 Magnesium 2.7 mg/dL (1.7-2.9) 03/08/21 05:00 Total Bilirubin 0.50 mg/dL (0.2-1.0) 03/08/21 05:00 AST 18 Units/L (15-37) 03/08/21 05:00 ALT 20 Units/L (12-78) 03/08/21 05:00 Alkaline Phosphatase 79 Units/L (46-116) 03/08/21 05:00 C-Reactive Protein 242.70 mg/L (0-3.0) H 03/08/21 05:00 Total Protein 7.3 g/dL (6.4-8.2) 03/08/21 05:00 Albumin 2.6 g/dL (3.4-5.0) L 03/08/21 05:00 Globulin 4.7 g/dL (2.5-4.5) H 03/08/21 05:00 Albumin/Globulin Ratio 0.6 Ratio (1.1-2.1) L 03/08/21 05:00 Specimen Type Clean catch urine 03/07/21 16:45 Urine Color Yellow (YELLOW) 03/07/21 16:45 Urine Appearance Clear (CLEAR) 03/07/21 16:45 Urine pH 5.0 (5.0 - 8.0) 03/07/21 16:45 Ur Specific [place] 1.010 (1.000-1.030) 03/07/21 16:45 Urine Protein 1+ (NEGATIVE) 03/07/21 16:45 Urine Glucose (UA) Negative (NEGATIVE) 03/07/21 16:45 Urine Ketones Negative (NEGATIVE) 03/07/21 16:45 Urine Occult Blood 1+ (NEGATIVE) 03/07/21 16:45 Urine Nitrite Negative (NEGATIVE) 03/07/21 16:45 Urine Bilirubin Negative (NEGATIVE) 03/07/21 16:45 Urine Urobilinogen Normal (NORMAL) 03/07/21 16:45 Ur Leukocyte Esterase Negative (NEGATIVE) 03/07/21 16:45 Urine RBC 3-5 /HPF (0-3) A 03/07/21 16:45 Urine WBC 0-2 /HPF (0-5) 03/07/21 16:45 Ur Squamous Epith Cells Many /HPF (NEGATIVE) 03/07/21 16:45 Amorphous Sediment 2+ /HPF (NEGATIVE) 03/07/21 16:45 Urine Bacteria Trace /HPF (NEGATIVE) 03/07/21 16:45 Ur Culture Indicated? No/not indicated 03/07/21 16:45 Stool Description 10g unformed mucoid 03/08/21 08:52 Stl Occult Blood (IFOB) Negative (NEGATIVE) 03/08/21 08:52 Stool for White Cells Positive (NEGATIVE) A 03/08/21 08:52 Stl C. diff Tox B Gene Negative (NEGATIVE) 03/08/21 08:52 Stl C. diff [id number] Presumptive negative (NEGATIVE) 03/08/21 08:52 Stool H. pylori Ag Negative (NEGATIVE) 03/08/21 08:52 SARS-CoV-2 (PCR) Negative (NEGATIVE) 03/07/21 10:49 Influenza Type A (PCR) Negative (NEGATIVE) 03/07/21 10:49 Influenza Type B (PCR) Negative (NEGATIVE) 03/07/21 10:49 RSV (PCR) Negative (NEGATIVE) 03/07/21 10:49 - Plan (1) Dehydration Status: Acute (2) FABIOLA (acute kidney injury) Status: Acute (3) Diarrhea Status: Acute (4) Hypokalemia Status: Acute Plan: ADMIT, GENTLE IV HYDRATION. I &OS, PPI THERAPY,. PAIN AND NAUSEA CONTROL, ELECTROLYTE REPLACEMENT (5) Gout flare Status: Acute (6) Hypomagnesemia Status: Acute (7) Nausea & vomiting Status: Acute (8) Weakness generalized Status: Acute
[2021-03-08] MEDS ORDERED: TOPIRAMATE 25 MG PO SCH (21:00)
[2021-03-08] MEDS ORDERED: NEURONTIN CAP 300 MG PO SCH (21:00)
[2021-03-08] MEDS ORDERED: LOTENSIN TAB 10 MG PO SCH (21:00)
[2021-03-08] MEDS ORDERED: CRESTOR TAB 10 MG PO SCH (21:00)
[2021-03-08] MEDS ORDERED: [UNRECOGNIZED DRUG - OTHER] PO SCH (21:00)
[2021-03-08] MEDS ORDERED: HYDROCHLOROTHIAZIDE 12.5 MG CAP PO SCH (21:00)
[2021-03-08] MEDS ORDERED: SINGULAIR TAB 10 MG PO SCH (21:00)
[2021-03-09] MEDS: FLAGYL IV PREMIX 500 MG BAG 500 MG/100 ML BAG IV SCH ×2 (03:33→08:51)
[2021-03-09] MEDS: NS 1000 ML 1,000 ML IV SCH (05:46)
[2021-03-09 06:19] LABS: ALBUMIN 2.3 g/dL (3.4-5.0); BASOPHILS # (AUTO) 0.1 X10^3/uL (0.0-0.1); BASOPHILS % (AUTO) 0.9 % (0.2-1.0); CALCIUM 8.2 mg/dL (8.5-10.1); CARBON DIOXIDE 22.4 mmol/L (21-32); COR CA(FOR HYPOALB) 9.6 mg/dL (8.5-10.1); CREATININE 1.17 mg/dL (0.55-1.02); EOSINOPHILS # (AUTO) 0.2 x10^3/uL (0.0-0.2); EOSINOPHILS % (AUTO) 2.4 % (0.9-2.9); HEMOGLOBIN 11.4 g/dL (12.0-16.0); LYMPHOCYTES # (AUTO) 1.4 X10^3/uL (1.3-2.9); LYMPHOCYTES % (AUTO) 20.9 % (21.0-51.0); MEAN CORPUSCULAR HEMOGLOBIN 30.5 pg (27.0-34.0); MEAN CORPUSCULAR HGB CONC 33.5 g/dL (33.0-35.0); MEAN CORPUSCULAR VOLUME 91.2 fL (80.0-100.0); MEAN PLATELET VOLUME 9.5 fL (7.4-11.0); MONOCYTES # (AUTO) 0.5 x10^3/uL (0.3-0.8); MONOCYTES % (AUTO) 7.9 % (0.0-13.0); NEUTROPHILS # (AUTO) 4.5 x10^3/uL (2.2-4.8); NEUTROPHILS % (AUTO) 67.9 % (42.0-75.0); PLATELET COUNT 216 X10^3/uL (150.0-450.0); RED BLOOD COUNT 3.73 X10^6/uL (3.5-5.4); RED CELL DISTRIBUTION WIDTH 14.4 % (11.6-16.5); TOTAL PROTEIN 6.8 g/dL (6.4-8.2); WHITE BLOOD COUNT 6.7 X10^3/uL (3.6-10.0)
[2021-03-09] MEDS ORDERED: NEURONTIN CAP 300 MG PO SCH (08:00)
[2021-03-09] MEDS: CITRACAL + VITAMIN D PO SCH (08:50)
[2021-03-09] MEDS: ZYLOPRIM PO SCH (08:51)
[2021-03-09] MEDS: PLAQUENIL PO SCH (08:51)
[2021-03-09] MEDS ORDERED: PREDNISONE TAB 10 MG PO SCH (09:00)
[2021-03-09] MEDS ORDERED: BENAZEPRIL HYDROCHLOROTHIAZIDE PO SCH (09:00)
[2021-03-09] MEDS ORDERED: PATIENT'S HOME MEDICATION (Fluticasone-Umeclidin-Vilanter [Trelegy Ellipta] 100-62.5-25 mc IN SCH (09:00)
[2021-03-09] MEDS ORDERED: EFFEXOR XR 150 MG CAP 24-HR PO SCH (09:00)
[2021-03-09] MEDS ORDERED: NexIUM PO SCH (09:00)
[2021-03-09] MEDS ORDERED: ZEBETA TAB 5 MG PO SCH (09:00)
[2021-03-09] MEDS ORDERED: CHLORTHALIDONE PO SCH (09:00)
[2021-03-09] MEDS ORDERED: LOVENOX INJ 40 MG SYR SC SCH (10:00)
[2021-03-09 11:55] VITALS: BP 184/79
== END 2021-03-09 13:50 | disposition home or self-care (01) ==
LOC: MED/SURG
PROVIDERS: ADMIT Internal Medicine; ATTEND Internal Medicine
DX: E83.42 Hypomagnesemia; J44.9 Chronic obstructive pulmonary disease, unspecified; M10.9 Gout, unspecified; Z20.822 Contact with and (suspected) exposure to COVID-19; R53.1 Weakness; N28.9 Disorder of kidney and ureter, unspecified; E87.6 Hypokalemia; I10 Essential (primary) hypertension; K52.9 Noninfective gastroenteritis and colitis, unspecified; E86.0 Dehydration